=== PATIENT | male | born 1990 | race Two or more races ===

== ENCOUNTER 2016-07-31 21:20 | Emergency (ER) | payer BC ==
[2016-07-31 22:32] VITALS: RESP 18; TEMP 98.3
--- NOTE | 2016-07-31 23:49 | DI ---
XR ANKLE COMPLETE MIN 3VW,07/31/2016 9:42 PM: Clinical History: Right ankle pain Previous Exam: None at this facility. Findings: 3 views of the right ankle are obtained, and demonstrate anatomic alignment without fractures. There is a large amount of soft tissue swelling overlying the lateral malleolus. Impression: No fractures.
--- NOTE | 2016-08-01 06:59 | PDOC ---
Foot / Ankle Injury - General Chief Complaint: Lower Extremity Problem/Injury Stated Complaint: RIGHT ANKLE INJURY Date Seen by Provider: 07/31/16 Time Seen by Provider: 21:30 Source: POSITIVE: Patient Exam Limitations: POSITIVE: No limitations Nurse's Notes Reviewed & Considered: Yes - History of Present Illness Initial Comments: The patient is a 25-year-old male. 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 He forced his right foot into inversion and he presents to the emergency room ambulatory, complaining of pain to the lateral and medial aspects of the right ankle. He has been able to ambulate, but walking is very painful for him. He denies any other injuries. He has no allergies placed on no medications and has no known medical problems. Have you received a tetanus shot in the past 10 years?: Yes Location: Right Ankle Timing: REPORTS: Abrupt Duration: 1 hour Severity: Moderate Quality: REPORTS: "Pain" (right ankle) Context: REPORTS: Twist Modifying Factors: REPORTS: Movement, Other (exacerbated by weightbearing) Associated Symptoms: DENIES: Tingling Distally, Numbness Distally, Swelling, Snapping Sensation, Popping Sensation, Other Any Prior Injuries Related to Current Complaint?: No - Patient Allergies Allergies/Adverse Reactions: Allergies Allergy/AdvReac Type Severity Reaction Status Date / Time No Known Allergies Allergy Verified 07/31/16 21:50 - Patient Home Medications Home Medications: Home Medications NK [No Home Medications Reported] 07/31/16 Past Medical History - heen HEENT History: Denies History Cardiovascular History: Denies History Respiratory History: Denies History Gastrointestinal History: Denies History Genitourinary History: Denies History Endocrine History: Denies History Musculoskeletal History: Denies History Neurological History: Denies History Blood Disorders: Denies History Psychiatric History: Denies History History of Sexually Transmitted Diseases: No Male Reproductive History: Denies History Cancer History: Denies History In Past Year Been Physically Harmed or Verbally Threatened: No History of MDRO: No History of Other Communicable Diseases: No Tobacco Use: Never Smoker Alcohol Use: Occasionally Substance Use Type: None Previous Surgical History: No Significant Family History: No pertinent family hx Past Medical History Reviewed: Reviewed - No Changes ROS - Limitations ROS Limitations: No Limitations Constitution: REPORTS: Denies Symptoms Cardiovascular: REPORTS: Denies Cardiac Symptoms Respiratory: REPORTS: Denies Resp Symptoms Neurological: REPORTS: Denies Neuro Symptoms Gastrointestinal: REPORTS: Denies GI Symptoms Endocrine: REPORTS: Denies Symptoms Musculoskeletal: REPORTS: Joint Pain (Right ankle) Genitourinary: REPORTS: Denies Symptoms Eyes: REPORTS: Denies Symptoms ENT: REPORTS: Denies Symptoms Skin: REPORTS: Denies Skin Symptoms Lympathic: REPORTS: Denies Lympathic Symptoms Immunologic: POSITIVE: Denies Symptoms Psychiatric: POSITIVE: Denies Psych Symptoms Foot / Ankle Exam - General Appearance General Appearance: POSITIVE: Alert, Cooperative, No Acute Distress. NEGATIVE: No Evidence of Trauma (swelling to the medial and lateral aspects of the right ankle with pain on palpation here) - Extremities Foot: NEGATIVE: Normal Inspection, Non-Tender, Renee. ROM d/t Decr. Funct., Deformity, Nail Injury, Complete Avulsion, Partial Avulsion, Subungual Hematoma , Soft Tissue Tenderness, Bony Tenderness, Swelling, Ecchymosis, Limited ROM d/ t Pain, Other Ankle: POSITIVE: Normal ROM, Stable, Soft-Tissue Tenderness, Bony Tenderness, Swelling (mostly lateral aspect of right ankle, less so medial aspect), See Diagram Gait: POSITIVE: Antalgic Gait Neuro: POSITIVE: Sensation Normal, Motor Normal Vascular: POSITIVE: No Vascular Compromise, Full Pulses, Equal Pulses Tendons: POSITIVE: Tendon Function Normal Skin: POSITIVE: Warm, Dry - Neck / Back Neck / Back: Normal Inspection - Respiratory / CVS Respiratory / CVS: POSITIVE: Chest Non-Tender, No Respiratory Distress, Heart Sounds Normal, Regular Rate/Rhythm, Breath Sounds Normal Peripheral Pulses: Radial (R): 2+, Radial (L): 2+, Dorsalis-pedis (R): 2+, Dorsalis-pedis (L): 2+ Images - Lower Extremities Lower Extremities: 1 - Swelling with some pain on palpation 2 - Some swelling with pain on palpation Procedures - Splinting Time Splint Applied: 22:20 Location: right lower leg Pre-Proc Neuro Vasc Exam: Normal Splint Type: CAM Walker, Crutches Splint Form: Short Extremity Applied By:: Nurse Post-Proc Neuro Vasc Exam: Normal Foot / Ankle Progress - Results Reviewed by me Pain Medication Addressed: POSITIVE: Yes (recommended Advil or Tylenol) School/Work Release Addressed: POSITIVE: Yes Xrays/CTs/US Reviewed by me: Yes Discussed with Radiologist: No Radiology Results: POSITIVE: Right, Ankle Radiology Findings: Some swelling laterally; no fractures or dislocations. - Patient's Progress Re-Examine Time:: 22:30 Re-Examine Comment: Cam Walker placed and crutches given. Reduction of pain with immobilization of ankle and Cam Walker. Status: POSITIVE: Improved, Re-Examined - Consult Counseled: POSITIVE: Patient, RE: Radiology Results, RE: DX, RE: Need for F/U Patient Care Time - Estimated PCT Patient Care Time (In Minutes): 21 Vital Signs - VS Reviewed Vital Signs Reviewed: Yes Discharge Clinical Impression: Sprain of ankle Discharge Disposition: Discharged to Home Condition: Stable Patient Instructions Given at Discharge: Ankle Sprain (ED) Additional Instructions: Wear cam walker, and use crutches as necessary, for 10 days. If not able to bear weight comfortably without the cam walker in 10 days, follow-up with your primary care provider or orthopedist. Elevate leg. Cool compresses. Advil or Tylenol for discomfort. Return here anytime if condition worsens. Follow Up With: NONE,NONE [Primary Care Provider] - (Instructions as above. Return anytime if condition worsens. Follow-up with your primary care provider or orthopedist.)
== END 2016-07-31 22:51 | disposition home or self-care (01) ==
LOC: ER 21:20
DX: S93.401A Sprain of unspecified ligament of right ankle, initial encounter (principal); W17.2XXA Fall into hole, initial encounter
CPT/HCPCS: 73610; 99282